=== PATIENT | female | born 1980 ===

== ENCOUNTER → 2019-06-18 | Day surgery (SDC) | payer OTHER ==
[~2019-06-18] MED LIST: IV RINGERS,LACTATED 1000ML 1,000 ML IV ONE; LIDOCAINE 2% PF 5 ML VIAL. ONE; PROPOFOL 40 ML IV ONE
[2019-06-18 10:39] VITALS: BP 110/56
--- NOTE | 2019-06-21 14:07 | PATHOLOGY ---
[facility] Accession Number: [id number] . 01 Material submitted: . esophagus - DISTAL ESOPHAGEAL BIOPSY. Modifiers: distal . 01 Clinical history: . Pre-OP DX: Heartburn Post-OP DX: Esophagitis . 02 Diagnosis: Esophageal biopsies, distal esophagus: - Segments of hyperplastic squamous esophageal mucosa consistent with reflux esophagitis. (JPM:[facility] 06/21/2019) QTP/06/21/2019 . 02 Comment: Sections of the distal esophageal biopsy reveal segments of focally tangentially oriented hyperplastic squamous esophageal mucosa.There are a few scattered intraepithelial eosinophils. The findings are supportive of the diagnosis of reflux esophagitis. There is no evidence of Ge's change, dysplasia, or malignancy. (JPM:[facility] 06/21/2019) . 02 Electronically signed: . Chris Chris MD, Pathologist NPI- [id number] . 01 Gross description: . Received in formalin labeled "Josefina Her, distal esophageal BX," are 3 segments of emery soft tissue measuring 1.0 x 0.7 x 0.1 cm in aggregate dimensions and ranging from 0.4 to 0.5 cm in maximum dimension. The specimen is submitted entirely in cassette A1. (TSD; 06/18/2019) TOB/TOB . 02 Pathologist provided ICD-10: K21.0 . 02 CPT . 772239 Specimen Comment: A courtesy copy of this report has been sent to Specimen Comment: [phone], . Specimen Comment: Report sent to / DR VIDAL Performed at: [address], [place], [place] [id number] MD Nick Sheppard MD Phone: [phone] Performed at: 02 [facility] [address], [place] [id number] MD Chris Chris MD Phone: [phone]
== END ==
LOC: ENDOS 08:51
PROVIDERS: ATTEND Internal Medicine Gastroenterology
DX: K21.0 Gastro-esophageal reflux disease with esophagitis (principal); K64.0 First degree hemorrhoids; F41.9 Anxiety disorder, unspecified; F32.9 Major depressive disorder, single episode, unspecified; K21.9 Gastro-esophageal reflux disease without esophagitis; F15.90 Other stimulant use, unspecified, uncomplicated; Z88.6 Allergy status to analgesic agent; Z88.8 Allergy status to other drugs, medicaments and biological substances; Z98.890 Other specified postprocedural states
CPT/HCPCS: 43239; 45378; 81025; J2001; J2704; 88305

== ENCOUNTER → 2019-07-07 | Outpatient (CLI) | payer OTHER ==
[2019-06-18 10:39] VITALS: BP 110/56
[~2019-07-07] VITALS: Ht 160 cm; Wt 79.4 kg
[~2019-07-07] MED LIST changes: -IV RINGERS,LACTATED 1000ML 1,000 ML IV ONE; -LIDOCAINE 2% PF 5 ML VIAL. ONE; -PROPOFOL 40 ML IV ONE; +SINCALIDE 1.59 MCG in IV NORMAL SALINE 50ML 30 ML IV ONE
--- NOTE | 2019-07-07 10:41 | RAD ---
ABDOMEN LTD: 07/07/2019 10:00 AM Indication: 39 years old Female. Epigastric pain. Comparison: None. TECHNIQUE: Sonographic evaluation of the right upper quadrant was performed utilizing grayscale and color Doppler imaging. FINDINGS: Liver: Homogenous normal echotexture.. There is hepatopedal flow within the portal venous system. Right hepatic lobe measures 12.7. Biliary system: CBD measures 3.5 mm. There is no intrahepatic or extrahepatic biliary dilatation. Gallbladder: No gallstones, wall thickening or pericholecystic fluid. . Sonographic Leiva sign: Negative Pancreas: Visualized head and uncinate process are unremarkable. Body and tail are not visualized. Right kidney: 10.7 x 4.9 x 4.5 cm. No hydronephrosis. Normal echotexture without focal mass or renal calculus. Free fluid:None. Visualized portions of the IVC and aorta are patent. IMPRESSION: No cholelithiasis. No intrahepatic or extrahepatic biliary ductal dilatation. Electronically signed by: Rosie Sutton MD (07/07/2019 10:38 AM) [id number]
--- NOTE | 2019-07-07 12:06 | RAD ---
Examination: NM HEPATOBILIARY SCAN W PHARM History: Epigastric pain Comparison/Correlation: None Findings: 5.5 mCi technetium 99m was administered intravenously for purposes of lymphadenopathy scintigraphy. Uptake of radiotracer by liver is normal. Gallbladder is visualized at 10 minutes. Radiotracer is within small bowel also at 10 minutes. No biliary dilatation. Following 1.59 mcg CCK IV over the course of 30 minutes, gallbladder ejection fraction is identified to be 79 percent. Impression: Normal hepatobiliary scintigraphy. Normal gallbladder ejection fraction. Electronically signed by: Jorge Damon MD (07/07/2019 12:03 PM) [facility]
== END | disposition home or self-care (01) ==
LOC: US 10:30
PROVIDERS: ATTEND Internal Medicine Gastroenterology
DX: R10.13 Epigastric pain (principal)
CPT/HCPCS: 76705; 78227; A9537; J2805